=== PATIENT | male | born 1965 | race Two or more races ===

== ENCOUNTER 2020-11-12 13:44 | Inpatient (IN) | payer MEDICAID ==
[~2020-11-12] VITALS: Ht 154.9 cm; Wt 65.8 kg
[2020-11-12 14:08] VITALS: BP 150/85
[2020-11-12] MEDS ORDERED: Omnipaque-300 100ml vial INJ ONE (15:30)
--- NOTE | 2020-11-12 15:42 | Emergency Room Report ---
History of Present Illness General Chief Complaint: Fever Source: Patient Present Illness HPI 55-year-old male with history of diabetes that is controlled with oral medication presents to the emergency department sent by his senior project controls specialist for right diabetic foot ulcer. Patient reports he has had an ulcer x5 months. Patient states that he began having fevers and chills 3 days ago. Patient reports that he was taking some unknown oral antibiotics previously. Patient reports that he has been receiving wound care as well. Patient states that he has 8 out of 10 severity pain is exacerbated upon palpation or attempting to walk/bear weight. Patient reports that 3 days ago he also noticed that his second toe on the right foot began to swell and become red when it was normal in appearance prior. He denies new trauma or fall. Patient states he has not had any formal imaging performed. He denies cough, shortness of breath, chest pain, headache, neck pain/stiffness or sore throat. Patient denies having any recent URI/illnesses. He denies paresthesias and reports no change in sensation to the affected extremity and toes. No other aggravating or relieving factors at this time. Allergies: Coded Allergies: No Known Allergies (Unverified , 11/12/20) COVID-19 Screening Contact w/high risk pt: No Experienced COVID-19 symptoms?: Yes COVID-19 Testing performed DEGREASING SOLUTION MIXER: No Patient History Past Medical History: see triage record Past Surgical History: none Pertinent Family History: none Immunizations: UTD Reviewed Nursing Documentation: PMH: Agreed; PSxH: Agreed Nursing Documentation-PMH Hx Diabetes: Yes Review of Systems All Other Systems: negative except mentioned in HPI Physical Exam Vital Signs Date Time Temp Pulse Resp B/P (MAP) Pulse Ox O2 Delivery O2 Flow Rate FiO2 11/12/20 14:00 101.7 117 19 150/85 (106) 98 Room Air Sp02 EP Interpretation: reviewed, normal General Appearance: no apparent distress, alert, GCS 15, non-toxic Head: normocephalic, atraumatic Eyes: bilateral eye normal inspection, bilateral eye PERRL ENT: hearing grossly normal, normal voice Neck: full range of motion Respiratory: lungs clear, normal breath sounds, no respiratory distress, no accessory muscle use, no wheezing, speaking full sentences Cardiovascular #1: regular rate, rhythm, normal capillary refill, tachycardia Musculoskeletal: normal range of motion, tender - plantar aspect of the right foot- 1.8cm DM foot ulcer. TTP to the entire right second toe- there is blue- olga discoloration and swelling. , swelling - right foot, and the right second toe., other - gait: compensates favoring the right foot. Neurologic: alert, oriented x3, sensory intact, responsive, speech normal, grossly normal Psychiatric: judgement/insight normal Skin: other - plantar aspect of the right foot- 1.8cm DM foot ulcer. TTP to the entire right second toe- there is blue-olga discoloration and swelling. Medical Decision Making PA Attestation Dr. Arguello Is my supervising Physician whom patient management has been discussed with. Diagnostic Impression: Primary Impression: Osteomyelitis of foot, acute Additional Impression: Diabetic foot ulcer Qualified Codes: E11.621 - Type 2 diabetes mellitus with foot ulcer; L97.519 - Non-pressure chronic ulcer of other part of right foot with unspecified severity ER Course 55-year-old male with history of diabetes that is controlled with oral medication presents to the emergency department sent by his senior project controls specialist for right diabetic foot ulcer. Patient reports he has had an ulcer x5 months. Patient states that he began having fevers and chills 3 days ago. Patient reports that he was taking some unknown oral antibiotics previously. Patient reports that he has been receiving wound care as well. Patient states that he has 8 out of 10 severity pain is exacerbated upon palpation or attempting to walk/bear weight. Patient reports that 3 days ago he also noticed that his second toe on the right foot began to swell and become red when it was normal in appearance prior. He d enies new trauma or fall. Patient states he has not had any formal imaging performed. He denies cough, shortness of breath, chest pain, headache, neck pain/stiffness or sore throat. Patient denies having any recent URI/illnesses. He denies paresthesias and reports no change in sensation to the affected extremity and toes. No other aggravating or relieving factors at this time. Ddx considered but are not limited to infected diabetic foot ulcer, osteomyelitis, sepsis, cellulitis, Necrotizing fasciitis, allergic reaction, burn, dermatitis, fracture, d/L, gout, paronychia, eponychia, ingrown toe nail, Vital signs: Pt. is tachycardic at 117 and febrile. H&PE are most consistent with diabetic patient presenting with open infected foot ulcer on the bottom of the right foot in addition to having fevers and tachycardia which indicate systemic involvement. Due to patient's medical h istory and current presentation further infectious/septic work-up, and advanced imaging is necessary to assess severity of involvement of the foot and/or need for surgical intervention as well as IV antibiotics. ORDERS: -CBC: WNL -CMP: WNL - Troponin: 0.00 - CK: WNL -Lactic : 1.4 -Bld Cultures: Pending. ED INTERVENTIONS: 1.25gm Vancomycin IV - 2.2gm Zosyn IV DISPOSITION: at this time pt. will be admitted to Dr. Cornejo for osteomyelitis secondary to diabetic foot ulcer with CT imaging to suggest possible abscess. Dr. Cornejo agreed to admit the pt. and to continue pt. care management. Labs Test 11/12/20 15:30 11/12/20 16:10 White Blood Count 9.4 K/UL (4.8-10.8) Red Blood Count 4.44 M/UL (4.70-6.10) Hemoglobin 14.1 G/DL (14.2-18.0) Hematocrit 39.3 % (42.0-52.0) Mean Corpuscular Volume 88 FL (80-99) Mean Corpuscular Hemoglobin 31.8 PG (27.0-31.0) Mean Corpuscular Hemoglobin Concent 36.0 G/DL (32.0-36.0) Red Cell Distribution Width 12.3 % (11.6-14.8) Platelet Count 251 K/UL (150-450) Mean Platelet Volume 5.7 FL (6.5-10.1) Neutrophils (%) (Auto) 74.5 % (45.0-75.0) Lymphocytes (%) (Auto) 12.2 % (20.0-45.0) Monocytes (%) (Auto) 11.8 % (1.0-10.0) Eosinophils (%) (Auto) 0.7 % (0.0-3.0) Basophils (%) (Auto) 0.7 % (0.0-2.0) Sodium Level 131 MMOL/L (136-145) Potassium Level 3.6 MMOL/L (3.5-5.1) Chloride Level 97 MMOL/L (98-107) Carbon Dioxide Level 27 MMOL/L (21-32) Anion Gap 7 mmol/L (5-15) Blood Urea Nitrogen 9 mg/dL (7-18) Creatinine 0.9 MG/DL (0.55-1.30) Estimat Glomerular Filtration Rate > 60 mL/min (>60) Glucose Level 137 MG/DL (74-106) Lactic Acid Level 1.40 mmol/L (0.4-2.0) Calcium Level 8.1 MG/DL (8.5-10.1) Total Bilirubin 0.9 MG/DL (0.2-1.0) Aspartate Amino Transf (AST/SGOT) 43 U/L (15-37) Alanine Aminotransferase (ALT/SGPT) 38 U/L (12-78) Alkaline Phosphatase 104 U/L (46-116) Total Creatine Kinase 62 U/L (26-308) Troponin I 0.000 ng/mL (0.000-0.056) Total Protein 8.1 G/DL (6.4-8.2) Albumin 2.7 G/DL (3.4-5.0) Globulin 5.4 g/dL Albumin/Globulin Ratio 0.5 (1.0-2.7) Urine Color Pale yellow Urine Appearance Clear Urine pH 7 (4.5-8.0) Urine Specific [place] 1.005 (1.005-1.035) Urine Protein Negative (NEGATIVE) Urine Glucose (UA) Negative (NEGATIVE) Urine Ketones Negative (NEGATIVE) Urine Blood Negative (NEGATIVE) Urine Nitrite Negative (NEGATIVE) Urine Bilirubin Negative (NEGATIVE) Urine Urobilinogen 1 MG/DL (0.0-1.0) Urine Leukocyte Esterase Negative (NEGATIVE) EKG Diagnostic Results Rate: tachycardiac - 118 Rhythm: NSR ST Segments: no acute changes ASA given to the pt in ED: No PA Scribe Text This Interpretation was scribed by KATIE Ye. Chest X-Ray Diagnostic Results Chest X-Ray Diagnostic Results : Chest X-Ray Ordered: Yes # of Views/Limited/Complete: 1 View Indication: Other - Part of septic work up. EP Interpretation: Yes PA Xray: Interpretation reviewed, by supervising MD, and agrees with findings. Interpretation: no consolidation, no effusion, no pneumothorax, no acute cardiopulmonary disease Impression: No acute disease Electronically Signed by: N. Ye PA-C CT/MRI/US Diagnostic Results CT/MRI/US Diagnostic Results : Imaging Test Ordered: CT Foot w/ Contrast Impression " IMPRESSION: 1. Age indeterminate fracture deformity of the base of the right second proximal phalanx. 2. Osteomyelitis in the region of the right second MTP joint cannot be excluded. Further evaluation could be performed with MRI if clinically indicated. 3. Soft tissue swelling in the forefoot, most severe in the right second digit. Fluid and gas in the plantar soft tissues of the right second digit may be related to open wound and abscess formation. 4. Nonspecific hyperdense material in the region of soft tissue ulceration at the plantar aspect of the right second MTP joint." --Per official radiology report- Please see report for specific details. Last Vital Signs Date Time Temp Pulse Resp B/P (MAP) Pulse Ox O2 Delivery O2 Flow Rate FiO2 11/12/20 14:08 101.7 117 19 150/85 98 Room Air Disposition: ADMITTED INPATIENT Condition: Serious Scripts Levofloxacin* (LEVOFLOXACIN*) 750 Mg Tablet 750 MG ORAL DAILY for 30 Days, #30 TAB Prov: Rgoelio Cornejo MD 11/15/20 Metronidazole* (FLAGYL*) 500 Mg Tablet 500 MG ORAL TID for 30 Days, #90 TAB Prov: Rogelio Cornejo MD 11/15/20 Metformin Hcl* (GLUCOPHAGE*) 500 Mg Tablet 500 MG ORAL TIAC for 30 Days, #60 TAB Prov: Rogelio Cornejo MD 11/15/20 Referrals: NOT CHOSEN IPA/,REFERRING (PCP) Dyan Ye Nov 12, 2020 15:42
[2020-11-12 15:59] LABS: BASOPHILS % (AUTO) 0.7 % (0.0-2.0); EOSINOPHILS % (AUTO) 0.7 % (0.0-3.0); HEMATOCRIT 39.3 % (42.0-52.0); HEMOGLOBIN 14.1 G/DL (14.2-18.0); LYMPHOCYTES % (AUTO) 12.2 % (20.0-45.0); MEAN CORPUSCULAR VOLUME 88 FL (80-99); MONOCYTES % (AUTO) 11.8 % (1.0-10.0); NEUTROPHILS % (AUTO) 74.5 % (45.0-75.0); PLATELET COUNT 251 K/UL (150-450); RED BLOOD COUNT 4.44 M/UL (4.70-6.10); RED CELL DISTRIBUTION WIDTH 12.3 % (11.6-14.8); WHITE BLOOD COUNT 9.4 K/UL (4.8-10.8)
[2020-11-12 16:06] LABS: ANION GAP 7 mmol/L (5-15); BLOOD UREA NITROGEN 9 mg/dL (7-18); CALCIUM 8.1 MG/DL (8.5-10.1); CARBON DIOXIDE 27 MMOL/L (21-32); CHLORIDE 97 MMOL/L (98-107); CREATININE 0.9 MG/DL (0.55-1.30); POTASSIUM 3.6 MMOL/L (3.5-5.1); SODIUM 131 MMOL/L (136-145)
[2020-11-12 16:11] LABS: ALANINE AMINOTRANSFERASE 38 U/L (12-78); ALBUMIN 2.7 G/DL (3.4-5.0); ALBUMIN/GLOBULIN RATIO 0.5 (1.0-2.7); ALKALINE PHOSPHATASE 104 U/L (46-116); ASPARTATE AMINO TRANSFERASE 43 U/L (15-37); BILIRUBIN,TOTAL 0.9 MG/DL (0.2-1.0); CREATINE KINASE 62 U/L (26-308)
[2020-11-12] MEDS ORDERED: Piperacillin/Tazobactam 2.25 GM in NS 110 ML IVPB ONE (16:45)
--- NOTE | 2020-11-12 16:58 | Diagnostic Imaging Report ---
Indication: Chest pain Technique: One view of the chest Comparison: none Findings: Lungs and pleural spaces are clear. Heart size is normal. Impression: No acute process
[2020-11-12 17:00] VITALS: BP 129/85
--- NOTE | 2020-11-12 17:24 | Diagnostic Imaging Report ---
EXAM: CT Right Lower Extremity Without and With Intravenous Contrast, Foot CLINICAL HISTORY: 55-year-old male with history of diabetes that is controlled with oral medication presents to the emergency department sent by his in classroom tutor for right diabetic foot ulcer. Patient reports he has had an ulcer x5 months. Patient states that he began having fevers and chills 3 days ago. Patient reports that he was taking some unknown oral antibiotics previously. Patient reports that he has been receiving wound care as well. Patient states that he has 8 out of 10 severity pain is exacerbated upon palpation or attempting to walk/bear weight. Patient reports that 3 days ago he also noticed that his second toe on the right foot began to swell and become red when it was normal in appearance prior. He denies new trauma or fall. Patient states he has not had any formal imaging performed. He denies cough, shortness of breath, chest pain, headache, neck pain/stiffness or sore throat. Patient denies having any recent URI/illnesses. He denies paresthesias and reports no change in sensation to the affected extremity and toes. No other aggravating or relieving factors at this time. TECHNIQUE: Axial computed tomography images of the right foot without and with intravenous contrast. CTDI is 3.30 mGy and DLP is 107.20 mGy-cm. One or more of the following dose reduction techniques were used: automated exposure control, adjustment of the mA and/or kV according to patient size, use of iterative reconstruction technique. COMPARISON: None FINDINGS: Bones/joints: Age indeterminate fracture deformity of the base of the right second proximal phalanx. Osteomyelitis in the region of the right second MTP joint cannot be excluded. Further evaluation could be performed with MRI if clinically indicated. Nonspecific hyperdense material in the region of soft tissue ulceration at the plantar aspect of the right second MTP joint. Degenerative changes of the right first MTP joint. No dislocation. Soft tissues: Soft tissue swelling in the forefoot, most severe in the right second digit. Fluid and gas in the plantar soft tissues of the right second digit may be related to open wound and abscess formation. No radiopaque foreign body. Vasculature: Vascular calcifications. IMPRESSION: 1. Age indeterminate fracture deformity of the base of the right second proximal phalanx. 2. Osteomyelitis in the region of the right second MTP joint cannot be excluded. Further evaluation could be performed with MRI if clinically indicated. 3. Soft tissue swelling in the forefoot, most severe in the right second digit. Fluid and gas in the plantar soft tissues of the right second digit may be related to open wound and abscess formation. 4. Nonspecific hyperdense material in the region of soft tissue ulceration at the plantar aspect of the right second MTP joint.
[2020-11-12 17:33] LABS: APPEARANCE,URINE CLEAR; BILIRUBIN, URINE NEGATIVE (NEGATIVE); COLOR,URINE PALE YELLOW; GLUCOSE, URINE (UA) NEGATIVE (NEGATIVE); KETONES,URINE NEGATIVE (NEGATIVE); LEUKOCYTE ESTERASE ,URINE NEGATIVE (NEGATIVE); NITRITE,URINE NEGATIVE (NEGATIVE); PH,URINE 7 (4.5-8.0); PROTEIN,URINE NEGATIVE (NEGATIVE); UROBILINOGEN,URINE 1 MG/DL (0.0-1.0)
[2020-11-12] MEDS ORDERED: Morphine Sulfate 4mg/ml Inj (IV USE ONLY) IVP ONE (19:15)
[2020-11-12] MEDS ORDERED: Mylanta II UD 30ml ORAL PRN (21:00)
[2020-11-12] MEDS ORDERED: Zolpidem 5mg tab ORAL PRN (21:00)
[2020-11-12] MEDS ORDERED: Milk of Magnesia 30ml Ud ORAL PRN (21:00)
[2020-11-12 21:34] VITALS: BP 114/62
[2020-11-12] MEDS: NovoLOG Insulin Flexpen SUBQ SCH (23:16)
[2020-11-12] MEDS: Heparin 5000 units/ml inj SUBQ SCH (23:20)
[2020-11-13] VITALS: BP 127/71
[2020-11-13] MEDS: metroNIDAZOLE 500mg tab ORAL SCH (00:38)
[2020-11-13 04:00] VITALS: BP 97/62
[2020-11-13] MEDS ORDERED: Vancomycin 1gm/D5W 275ml IVPB SCH ×2 (05:00)
[2020-11-13] MEDS: NovoLOG Insulin Flexpen SUBQ SCH ×4 (06:44→21:40)
[2020-11-13 07:41] LABS: BASOPHILS % (AUTO) 1.2 % (0.0-2.0); HEMATOCRIT 38.6 % (42.0-52.0); HEMOGLOBIN 12.9 G/DL (14.2-18.0); LYMPHOCYTES % (AUTO) 23.6 % (20.0-45.0); MEAN CORPUSCULAR VOLUME 91 FL (80-99); MONOCYTES % (AUTO) 15.5 % (1.0-10.0); NEUTROPHILS % (AUTO) 57.6 % (45.0-75.0); PLATELET COUNT 234 K/UL (150-450); RED BLOOD COUNT 4.23 M/UL (4.70-6.10); RED CELL DISTRIBUTION WIDTH 12.6 % (11.6-14.8); WHITE BLOOD COUNT 6.4 K/UL (4.8-10.8)
[2020-11-13 08:00] VITALS: BP 112/68
[2020-11-13 08:05] LABS: ALANINE AMINOTRANSFERASE 31 U/L (12-78); ALBUMIN 2.2 G/DL (3.4-5.0); ALBUMIN/GLOBULIN RATIO 0.5 (1.0-2.7); ALKALINE PHOSPHATASE 88 U/L (46-116); ANION GAP 5 mmol/L (5-15); ASPARTATE AMINO TRANSFERASE 38 U/L (15-37); BILIRUBIN,TOTAL 0.8 MG/DL (0.2-1.0); BLOOD UREA NITROGEN 9 mg/dL (7-18); CARBON DIOXIDE 27 MMOL/L (21-32); CHLORIDE 102 MMOL/L (98-107); CHOLESTEROL 92 MG/DL (< 200); CREATININE 0.8 MG/DL (0.55-1.30); HDL CHOLESTEROL 30 MG/DL (40-60); POTASSIUM 3.2 MMOL/L (3.5-5.1); SODIUM 134 MMOL/L (136-145); TRIGLYCERIDES 73 MG/DL (30-150)
[2020-11-13] MEDS: Heparin 5000 units/ml inj SUBQ SCH ×2 (08:34→21:43)
[2020-11-13] MEDS: metFORMIN 500mg tab ORAL SCH ×2 (11:05→16:35)
--- NOTE | 2020-11-13 11:59 | History and Physical Report ---
DATE OF ADMISSION: 11/12/2020 CHIEF COMPLAINT AND REASON FOR HOSPITALIZATION: The patient is a 55-year-old man, admitted with foot ulcer, swollen second toe on the right foot and some chills and fevers subjectively at home. He saw a radiological health specialist Dr. Buckner, at a clinic and apparently sent the patient here. The patient has been diagnosed with diabetes about six months ago. He apparently has had a foot ulcer for about six months and now worsening swelling of the right second toe, possible osteomyelitis. There is no chest pain, shortness of breath or cough. ALLERGIES: None known. MEDICATIONS: He cannot give me a list of his medicines, but he is taking a diabetic medicine twice a day and I believe oral antibiotics. HABITS: He is a nonsmoker, alcohol occasional. SOCIAL HISTORY: He lives with a roommate. SYSTEM REVIEW: Negative other than the history of present illness and a history infection about a year ago and a history of hospitalization for nausea and vomiting about a year ago. PHYSICAL EXAMINATION: GENERAL: The patient is alert man, lying in bed, in no acute distress. VITAL SIGNS: He had a fever of 101.7 in the emergency room, now 97.3, pulse 68, respirations 18, blood pressure 97/62. HEAD, EYES, EARS, NOSE, THROAT: Sclerae are nonicteric. Ocular motions intact in all directions. Oral mucosa moist. NECK: No adenopathy or thyroid enlargement. LUNGS: Clear. HEART: Regular rhythm. No murmur. ABDOMEN: Soft without organomegaly or masses. EXTREMITIES: No edema, cyanosis or clubbing. The feet are warm. 1+ pedal pulses bilaterally. Left foot has no abnormalities. The right foot has a very swollen right second toe and erythematous. There is a plantar ulcer approximately 2 cm with a dry scab. NEUROLOGIC: He is alert and oriented. Cranial nerves are intact. PERTINENT LABORATORY DATA: White count 9.4, hemoglobin 14.1. The admission electrolytes sodium 131, potassium 3.6, BUN 9, creatinine 0.9, glucose 137. Albumin is low at 2.7. Imaging was done including a foot CT, which shows a fracture in the base of the right second proximal phalanx, osteomyelitis of the right second MTP joint cannot be excluded, soft tissue swelling. IMPRESSION: 1. Diabetic foot ulcer. 2. Very likely osteomyelitis. 3. Adult onset diabetes. 4. Prior failure on outpatient therapy. 5. Concerned for sepsis, but clinically the patient is stable now had fever. PLAN: We will give him a course of IV antibiotics and early switched to oral antibiotics. He needs to have administrator social welfare arrange outpatient care and possibly refer to a [facility] facility. Very likely, he will need six weeks of IV antibiotics, wound care and close outpatient followup, which may not be done through the [facility] system due to insurance issues. social worker aide is working hard to make arrangements. Rogelio Cornejo M.D. DR: GEOVANNA JOB#: [id number] CC:
[2020-11-13 12:00] VITALS: BP 120/64
[2020-11-13 16:00] VITALS: BP 129/66
[2020-11-13] MEDS: Vancomycin 1.25gm/250ml Premix IVPB SCH (17:39)
[2020-11-13 20:00] VITALS: BP 113/71
[2020-11-14] VITALS (7 sets, daily range): BP systolic 81–97; BP diastolic 53–72
[2020-11-14] MEDS: Vancomycin 1.25gm/250ml Premix IVPB SCH ×3 (01:38→18:10)
[2020-11-14] MEDS: metFORMIN 500mg tab ORAL SCH ×3 (05:43→16:51)
[2020-11-14] MEDS: metroNIDAZOLE 500mg tab ORAL SCH ×4 (05:43→22:44)
[2020-11-14] MEDS: NovoLOG Insulin Flexpen SUBQ SCH ×4 (05:55→21:00)
[2020-11-14 09:18] LABS: ANION GAP 6 mmol/L (5-15); BLOOD UREA NITROGEN 10 mg/dL (7-18); CALCIUM 8.5 MG/DL (8.5-10.1); CARBON DIOXIDE 25 MMOL/L (21-32); CHLORIDE 100 MMOL/L (98-107); CREATININE 0.9 MG/DL (0.55-1.30); POTASSIUM 3.9 MMOL/L (3.5-5.1); SODIUM 131 MMOL/L (136-145)
[2020-11-14] MEDS: Heparin 5000 units/ml inj SUBQ SCH ×2 (10:14→21:19)
--- NOTE | 2020-11-14 17:12 | General Progress Note ---
Subjective Constitutional: Reports: weakness HEENT: Reports: no symptoms Cardiovascular: Reports: no symptoms Respiratory: Reports: no symptoms Gastrointestinal/Abdominal: Reports: no symptoms Genitourinary: Reports: no symptoms Neurologic/Psychiatric: Reports: no symptoms Endocrine: Reports: no symptoms Hematologic/Lymphatic: Reports: no symptoms Allergies: Coded Allergies: No Known Allergies (Unverified , 11/12/20) Subjective foot pain less Objective Last 24 Hour Vital Signs Date Time Temp Pulse Resp B/P (MAP) Pulse Ox O2 Delivery O2 Flow Rate FiO2 11/14/20 16:00 98.5 90 18 87/60 (69) 96 11/14/20 12:00 97.5 84 18 89/59 (69) 96 11/14/20 09:00 Room Air 11/14/20 08:00 97.7 91 18 87/59 (68) 96 11/14/20 04:00 97.6 90 18 97/72 (80) 99 11/14/20 00:00 98.2 94 18 95/69 (78) 99 11/13/20 21:00 Room Air 11/13/20 20:00 98.2 89 18 113/71 (85) 97 Intake and Output 11/13/20 11/14/20 19:00 07:00 Intake Total 300 ml 250 ml Balance 300 ml 250 ml Intake Oral 300 ml 250 ml # Voids 3 2 # Bowel Movements 1 Laboratory Tests 11/14/20 08:35: Sodium Level 131L, Potassium Level 3.9, Chloride Level 100, Carbon Dioxide Level 25, Anion Gap 6, Blood Urea Nitrogen 10, Creatinine 0.9, Estimat Glomerular Filtration Rate > 60, Glucose Level 106, Calcium Level 8.5 11/14/20 16:54: POC Whole Blood Glucose 139H Height (Feet): 5 Height (Inches): 1.00 Weight (Pounds): 145 General Appearance: no apparent distress, alert EENT: normal ENT inspection Neck: normal alignment Cardiovascular: normal rate, regular rhythm Abdomen: non tender, soft Edema: no edema noted Arm (L), no edema noted Arm (R), no edema noted Leg (L), no edema noted Leg (R), no edema noted Pedal (L), no edema noted Pedal (R), no edema noted Generalized Neurologic: rv repair technician II-XII grossly normal Skin: other - cellulitis r 2 toe , swollen, plantar ulcer Assessment/Plan Problem List: (1) Diabetes ICD Codes: E11.9 - Type 2 diabetes mellitus without complications SNOMED: 44977905 (2) Diabetic foot ulcer ICD Codes: E11.621 - Type 2 diabetes mellitus with foot ulcer; L97.509 - Non- pressure chronic ulcer of other part of unspecified foot with unspecified severity SNOMED: 088187313, [id number] Qualifiers: Qualified Codes: E11.621 - Type 2 diabetes mellitus with foot ulcer; L97.519 - Non-pressure chronic ulcer of other part of right foot with unspecified severity (3) Osteomyelitis of foot, acute ICD Codes: M86.179 - Other acute osteomyelitis, unspecified ankle and foot; L97.509 - Non-pressure chronic ulcer of other part of unspecified foot with unspecified severity SNOMED: 360307870, [id number] Assessment/Plan: continue empiric antibiotics Rogelio Cornejo MD Nov 14, 2020 17:12
[2020-11-15] VITALS: BP 93/58
[2020-11-15] MEDS: Vancomycin 1.25gm/250ml Premix IVPB SCH (02:26)
[2020-11-15 04:00] VITALS: BP 93/59
[2020-11-15] MEDS: metroNIDAZOLE 500mg tab ORAL SCH ×2 (06:00→06:01)
[2020-11-15] MEDS: metFORMIN 500mg tab ORAL SCH (06:01)
[2020-11-15] MEDS: NovoLOG Insulin Flexpen SUBQ SCH (06:30)
[2020-11-15 08:00] VITALS: BP 88/57
[2020-11-15] MEDS ORDERED: NS 275ml ONE (09:26)
[2020-11-15] MEDS ORDERED: Tubing IV Secondary IV ONE (09:26)
[2020-11-15] MEDS: Heparin 5000 units/ml inj SUBQ SCH (10:04)
[2020-11-15] MEDS ORDERED: GLUCOPHAGE500 MG ORAL (10:40)
[2020-11-15] MEDS ORDERED: LEVOFLOXACIN750 MG ORAL (10:40)
[2020-11-15] MEDS ORDERED: FLAGYL500 MG ORAL (10:40)
--- NOTE | 2020-11-15 11:00 | Discharge Summary ---
DATE OF ADMISSION: 11/12/2020 DATE OF DISCHARGE: 11/15/2020 PERTINENT HISTORY: The patient is a 55-year-old man with foot ulcer, fever, tachycardia, possible sepsis. He has a swollen painful right second toe and ulcer on the bottom of his right foot. There is a history of diabetes. PERTINENT PHYSICAL FINDINGS: LUNGS: Clear. HEART: Regular rhythm and tachycardic. ABDOMEN: Soft without organomegaly. EXTREMITIES: Feet are warm with positive pedal pulses. The right foot has a very swollen right second toe, erythematous and cellulitis. There is a plantar ulcer about 2 cm with a dry scab. COURSE IN THE HOSPITAL: The patient was given empiric antibiotics. He had a foot CT showing age indeterminate fracture deformity in the base of the right second proximal phalanx, osteomyelitis in the right second MTP joint cannot be excluded, soft tissue swelling and ulcer. The patient responded well to broad-spectrum antibiotics. He became afebrile. Wound culture grew strep and coagulase-negative staph. Blood cultures were negative. His sugar was controlled and he was discharged in stable condition. FINAL DIAGNOSES: 1. Sepsis due to foot infection. 2. Osteomyelitis, right foot. 3. Plantar ulcer, right foot. 4. Adult-onset diabetes. DISCHARGE DISPOSITION: He was discharged to follow up in the office of his terra cotta roofer helper, Dr. Buckner and primary care physician. MEDICATIONS: Include Levaquin 750 daily, Flagyl 500 mg t.i.d., metformin 500 mg b.i.d. Rogelio Cornejo M.D. DR: Obi JOB#: [id number] CC:
== END 2020-11-15 12:45 | disposition home or self-care (01) | DRG 720 ==
LOC: EMR 14:59 → 4E 17:20 → EDBEDREQ 20:27
DX: A41.9 Sepsis, unspecified organism (principal); M86.171 Other acute osteomyelitis, right ankle and foot; E11.621 Type 2 diabetes mellitus with foot ulcer
CPT/HCPCS: 36415; 71045; 80048; 80053; 80061; 80202; 81003; 82550; 82962; 83605; 83735; 84443; 84484; 85025; 87040; 87070; 87205; 93005; 96365; 96367; 96375; 99285; J1815; J8499; U0002